=== PATIENT | male | born 1950 | race Caucasian/White ===

== ENCOUNTER 2017-04-24 20:35 | Emergency (ER) | payer BC ==
[2017-04-24 20:45] VITALS: BP 141/94
[2017-04-24] MEDS ORDERED: Lidocaine 2% 20 ML MDV ONE (20:58)
[2017-04-24] MEDS ORDERED: Bacitracin/Neomycin/Polymyxin B Oint 0.9 GM U/D Packet ONE (21:31)
--- NOTE | 2017-04-24 21:53 | EDM.PDOC ---
ED HPI GENERAL MEDICAL PROBLEM - General Chief Complaint: Laceration Stated Complaint: finger laceration Time Seen by Provider: 04/24/17 21:00 Source of Information: Reports: Patient, Family History Limitations: Reports: No Limitations - History of Present Illness INITIAL COMMENTS - FREE TEXT/NARRATIVE: Patient was removing cover on his carving knife today 1 hour [employer] at which time the knife slipped causing a laceration of the right index, middle and ring finger. Patient states Tdap uptodate. He denies pain or discomfort. Affirms he placed pressure and paper towel on the area. Minimal bleeding noted. Onset: Today Onset Date: 04/24/17 Onset Time: 20:30 Duration: Hour(s): (2 hours.) Location: Reports: Upper Extremity, Right Quality: Reports: Ache Severity: Mild Improves with: Reports: None Worsens with: Reports: Movement Context: Reports: Trauma Associated Symptoms: Reports: No Other Symptoms Treatments [employer]: Reports: Home Treatments Right 4-Ring finger Pain Score (Numeric/FACES): 3 - Related Data Allergies Allergy/AdvReac Type Severity Reaction Status Date / Time atorvastatin calcium Allergy Cannot Verified 04/24/17 20:36 [From Lipitor] Remember Home Meds: Home Meds Atenolol/Chlorthalidone [Tenoretic 50] 1 tab PO DAILY 11/16/13 [History] Cholecalciferol (Vitamin D3) [Vitamin D] 2,000 unit PO DAILY 11/16/13 [History] Irbesartan [Avapro] 300 mg PO DAILY 11/16/13 [History] Naproxen Sodium [Aleve] 220 mg PO PRN 11/16/13 [History] Potassium Chloride 20 meq PO DAILY 11/16/13 [History] amLODIPine Besylate [Amlodipine Besylate] 5 mg PO BEDTIME 11/16/13 [History] Ascorbic Acid [Vitamin C] 1,000 mg PO DAILY 05/23/15 [History] Past Medical History HEENT History: Reports: None Cardiovascular History: Reports: High Cholesterol, Hypertension Respiratory History: Reports: None Gastrointestinal History: Reports: None Genitourinary History: Reports: None Oncologic (Cancer) History: Reports: Prostate - Past Surgical History Head Surgeries/Procedures: Reports: None HEENT Surgical History: Reports: None Cardiovascular Surgical History: Reports: None Respiratory Surgical History: Reports: None GI Surgical History: Reports: Hernia, Inguinal Male Surgical History: Reports: Prostatectomy Neurological Surgical History: Reports: None Social & Family History - Family History Family Medical History: Unobtainable - Tobacco Use Smoking Status *Q: Current Every Day Smoker Years of Tobacco use: 35 Packs/Tins Daily: 1 Second Hand Smoke Exposure: No - Caffeine Use Caffeine Use: Reports: Coffee - Alcohol Use Days Per Week of Alcohol Use: 1 Number of Drinks Per Day: 2 Total Drinks Per Week: 2 Date of Last Drink: 04/24/17 - Recreational Drug Use Recreational Drug Use: No ED ROS GENERAL - Review of Systems Review Of Systems: See Below Constitutional: Reports: No Symptoms HEENT: Reports: No Symptoms Respiratory: Reports: No Symptoms Cardiovascular: Reports: No Symptoms Endocrine: Reports: No Symptoms GI/Abdominal: Reports: No Symptoms : Reports: No Symptoms Musculoskeletal: Reports: No Symptoms Skin: Reports: Wound, Other (2 cm laceration of the Right index finger-1 cm laceration of the Right Ring finger dorsal region and .5 laceration of the lateral middle fingerl All superficial.) Neurological: Reports: No Symptoms. Denies: Numbness, Paresthesia, Tingling Psychiatric: Reports: No Symptoms Hematologic/Lymphatic: Reports: No Symptoms Immunologic: Reports: No Symptoms (Tdap is up to date) ED EXAM, SKIN/RASH Exam: See Below Exam Limited By: No Limitations General Appearance: Alert, WD/WN, No Apparent Distress Ears: Normal External Exam, Normal Canal, Hearing Grossly Normal, Normal TMs Nose: Normal Inspection, Normal Mucosa, No Blood Throat/Mouth: Normal Inspection, Normal Lips, Normal Teeth, Normal Gums, Normal Oropharynx, Normal Voice, No Airway Compromise Head: Atraumatic, Normocephalic Neck: Normal Inspection, Supple, Non-Tender, Full Range of Motion Respiratory/Chest: No Respiratory Distress, Lungs Clear, Normal Breath Sounds, No Accessory Muscle Use, Chest Non-Tender Cardiovascular: Normal Peripheral Pulses, Regular Rate, Rhythm, No Edema, No Gallop, No JVD, No Murmur, No Rub Peripheral Pulses: 3+: Brachial (L), Brachial (R), Radial (L), Radial (R) GI/Abdominal: Soft, Non-Tender (Male) Exam: Deferred Rectal (Males) Exam: Deferred Extremities: Normal Inspection, Normal Range of Motion, Non-Tender, No Pedal Edema, Normal Capillary Refill Neurological: Alert, Oriented, CN II-XII Intact, Normal Cognition, Normal Gait, Normal Reflexes, No Motor/Sensory Deficits Psychiatric: Normal Affect, Normal Mood Skin: Warm, Dry, Wound/Incision (As described above- superficail laceration of the distal right 2nd 3rd and 4th fingers.) Lymphatic: No Adenopathy ED SKIN PROCEDURES - Laceration/Wound Repair Right Sides of Finger Lac/Wound length In cm: 2 Appearance: Subcutaneous Distal NVT: Neuro & Vascular Intact, No Tendon Injury Anesthetic Type: Local Local Anesthesia - Lidocaine (Xylocaine): 2% Plain Local Anesthetic Volume: 2cc Skin Prep: Providone-Iodine (Betadine), Sterile Drape Saline Irrigation (cc's): 50 Exploration/Debridement/Repair: Wound Explored, In a Bloodless Field, No Foreign Material Found Closed with: Sutures Suture Size: 3-0 # of Sutures: 4 Suture Type: Silk Drain Placement: No Sterile Dressing Applied: Provider Tetanus Status Addressed: Other (Up to date) Complications: No Right Distal Finger Lac/Wound length In cm: 1 Appearance: Subcutaneous, Clean Distal NVT: Neuro & Vascular Intact, No Tendon Injury Anesthetic Type: Local Local Anesthesia - Lidocaine (Xylocaine): 2% Plain Local Anesthetic Volume: 1cc Skin Prep: Providone-Iodine (Betadine) Saline Irrigation (cc's): 15 Exploration/Debridement/Repair: Wound Explored, Explored to Base, No Foreign Material Found Closed with: Sutures Suture Size: 3-0 Suture Type: Silk Sterile Dressing Applied: Provider Tetanus Status Addressed: Yes Complications: No Course - Vital Signs Last Recorded V/S: Last Vital Signs Temp 36.6 C 04/24/17 20:39 Pulse 89 04/24/17 20:39 Resp 18 04/24/17 20:39 BP 141/94 H 04/24/17 20:39 Pulse Ox 93 L 04/24/17 20:39 - Orders/Labs/Meds Meds: Medications Discontinued Medications Generic Name Dose Route Start Last Admin Trade Name Edmundo PRN Reason Stop Dose Admin Lidocaine HCl Confirm 04/24/17 20:58 04/24/17 21:44 Xylocaine 2% Administered 04/24/17 20:59 20 ml Dose Administration 20 ml .ROUTE .STK-MED ONE Neomycin/Polymyxin/Bacitracin Confirm 04/24/17 21:31 04/24/17 21:44 Triple Antibiotic Oint Administered 04/24/17 21:32 1 each Dose Administration 1 each .ROUTE .STK-MED ONE Departure - Departure Time of Disposition: 21:59 Disposition: Home, Self-Care 01 Condition: Good Clinical Impression: Skin lesion, Broken skin - Discharge Information Instructions: Laceration Care, Adult, [id number], Stitches, Jackson, or Adhesive Wound Closure, [id number] Forms: ED Department Discharge Additional Instructions: Keep wound clean and dry with daily dressing change. Prevent Further injury to the area. Suture removal 1 week to 10 days. F/U prn MLP Sign Off - Signature Requirements MLP Sign Off: No - Problem List & Annotations (1) Laceration SNOMED Code(s): 858592756 Code(s): SKF4344 - Status: Acute Current Visit: Yes - Assessment/Plan Assessment:: Minor laceration Repair x3. of the Right distal fingers. 2 cm, 1 cm, .5 cm. Evaluation and Take home sheet reviewed. Plan: Suture removal in 7-10 days Prevent further injury to the area. F/U prn. Reivew Take Home Sheet Laceration repair.
== END 2017-04-24 22:10 | disposition home or self-care (01) ==
LOC: CC.ED 20:35
DX: S61.210A Laceration without foreign body of right index finger without damage to nail, initial encounter (principal); S61.212A Laceration without foreign body of right middle finger without damage to nail, initial encounter; S61.214A Laceration without foreign body of right ring finger without damage to nail, initial encounter; I10 Essential (primary) hypertension; F17.210 Nicotine dependence, cigarettes, uncomplicated; E78.00 Pure hypercholesterolemia, unspecified; Z88.8 Allergy status to other drugs, medicaments and biological substances; Z79.899 Other long term (current) drug therapy; W26.0XXA Contact with knife, initial encounter
CPT/HCPCS: 12002; 99282

== ENCOUNTER 2024-01-07 09:15 | Day surgery (SDC) | payer BC ==
[2024-01-07] MEDS: Lactated Ringers 1,000 ML IV SCH (09:31)
[2024-01-07] MEDS ORDERED: fentaNYL 50 MCG/ML SDV ONE (09:45)
[2024-01-07] MEDS ORDERED: Propofol 200 MG/20 ML SDV ONE ×2 (09:45)
[2024-01-07] MEDS ORDERED: Midazolam 1 MG/ML 2 ML SDV ONE (09:45)
[2024-01-07] MEDS: Tetracaine HCl/PF 0.5% 4 ML Bottle EYEBOTH ONE ×2 (10:13)
[2024-01-07] MEDS: Lidocaine 2% with EPINEPHrine 1:200,000 10 ML SDV INJECT ONE ×2 (10:13)
[2024-01-07 13:02] VITALS: BP 166/91; PULSE 56
== END 2024-01-07 11:55 | disposition home or self-care (01) ==
LOC: CC.SDS 09:15
PROVIDERS: ATTEND Ophthalmology
DX: H02.834 Dermatochalasis of left upper eyelid (principal); H02.831 Dermatochalasis of right upper eyelid; I12.9 Hypertensive chronic kidney disease with stage 1 through stage 4 chronic kidney disease, or unspecified chronic kidney disease; N18.9 Chronic kidney disease, unspecified; L57.0 Actinic keratosis; H02.539 Eyelid retraction unspecified eye, unspecified lid; Z79.899 Other long term (current) drug therapy
CPT/HCPCS: 00103; 99100; J2250; J2704; J3010; J3490; J7120

== ENCOUNTER 2024-03-10 06:37 | Day surgery (SDC) | payer BC ==
[2024-03-10] MEDS: Lactated Ringers 1,000 ML IV SCH (07:16)
[2024-03-10] MEDS ORDERED: Midazolam 1 MG/ML 2 ML SDV ONE (08:00)
[2024-03-10] MEDS ORDERED: fentaNYL 50 MCG/ML SDV ONE (08:00)
[2024-03-10] MEDS ORDERED: Ondansetron 4 MG/2 ML SDV ONE (08:00)
[2024-03-10] MEDS ORDERED: Propofol 200 MG/20 ML SDV ONE ×2 (08:00)
[2024-03-10] MEDS: Tetracaine HCl/PF 0.5% 4 ML Bottle EYELF ONE (08:15)
[2024-03-10] MEDS: Proparacaine 0.5% Ophth Soln 15 ML Bottle EYELF ONE (08:15)
[2024-03-10] MEDS: Lidocaine 1% with EPINEPHrine 1:100,000 20 ML MDV INJECT ONE (08:15)
[2024-03-10 09:42] VITALS: BP 139/74; PULSE 52
== END 2024-03-10 10:10 | disposition home or self-care (01) ==
LOC: CC.SDS 06:37
PROVIDERS: ATTEND Ophthalmology
DX: H02.105 Unspecified ectropion of left lower eyelid (principal); I12.9 Hypertensive chronic kidney disease with stage 1 through stage 4 chronic kidney disease, or unspecified chronic kidney disease; N18.9 Chronic kidney disease, unspecified; G47.30 Sleep apnea, unspecified; L57.0 Actinic keratosis; Z79.899 Other long term (current) drug therapy
CPT/HCPCS: J2250; J2405; J2704; J3010; J3490; J7120